=== PATIENT | male | born 1995 | race Two or more races ===

== ENCOUNTER → 2020-10-01 | Outpatient (CLI) | payer OTHER | END | disposition home or self-care (01) | LOC: OFIC 805 10:01 | PROVIDERS: ATTEND Otolaryngology | DX: J35.2 Hypertrophy of adenoids (principal); J32.8 Other chronic sinusitis; J34.89 Other specified disorders of nose and nasal sinuses; J33.0 Polyp of nasal cavity ==

== ENCOUNTER → 2020-10-12 | Outpatient (CLI) | payer OTHER | END | disposition home or self-care (01) | LOC: OFIC 805 08:56 | PROVIDERS: ATTEND Otolaryngology Otology & Neurotology | DX: H60.392 Other infective otitis externa, left ear (principal); J34.89 Other specified disorders of nose and nasal sinuses; J33.0 Polyp of nasal cavity ==

== ENCOUNTER → 2020-10-29 | Outpatient (CLI) | payer OTHER | END | disposition home or self-care (01) | LOC: OFIC 805 09:05 | PROVIDERS: ATTEND Otolaryngology | DX: J35.2 Hypertrophy of adenoids (principal); J34.89 Other specified disorders of nose and nasal sinuses; C30.0 Malignant neoplasm of nasal cavity ==